=== PATIENT | female | born 2000 | race Caucasian/White ===

== ENCOUNTER 2024-02-29 07:27 | Inpatient (IN) | payer MEDICAID, SELFPAY ==
[2024-02-29] VITALS (68 sets, daily range): BP systolic 108–143; BP diastolic 55–84; PULSE 54–93; RESP 16–18; TEMP 36.1–37.1; O2SAT 80–100; BMI 39.6
[2024-02-29] MEDS: Lactated Ringers 1,000 ML 50 ML IV (08:04)
--- NOTE | 2024-02-29 08:09 | PCM.HP.OB ---
HPI - General General Date of Admission: 02/29/24 HPI Narrative FABIO GAVIN, is a 23 F who presents for induction of labor for GHTN and poor growth. Maternal Data Information MATTEO Calculator Estimated Delivery Date Method Current WG Current Estimate 03/09/24 Manual 38w 5d Final MATTEO: 03/09/24 [facility] Medical History (Updated 02/29/24 @ 08:12 by Melissa Bailey CNM) History of prior with IUGR Pre-eclampsia Gestational HTN Home Medications ?Medication ?Instructions ?Recorded ?Last Taken ?Type aspirin 81 mg tablet,delayed 81 mg PO DAILY 02/29/24 02/28/24 History release (Adult Low Dose Aspirin) vit no.95-ferrous 1 tab PO DAILY 02/29/24 02/28/24 History fumarate 28 mg-folic acid 800 mcg tablet () Allergy/AdvReac Type Severity Reaction Status Date / Time No Known Allergies Allergy Verified 02/29/24 07:45 Social History Smoking Status: Never smoker History Elective abortions Hx Para 1 Spontaneous abortions Hx # Term Pregnancies Ectopic pregnancies Hx # Pregnancies Multiple births # of living children NST FHR Rate Baby A Baseline: 140 Variability:: Moderate Accelerations:: 15 x 15 Decelerations:: None NST Reactive:: Yes FHR Category:: Category I Uterine Activity:: TOCO reading every 2-3 minutes ROS Eyes Eyes: Denies blurry vision, change in vision or spots in vision ENT HEENT: Denies dizziness or headache(s) Cardiovascular Cardiovascular: Denies abdominal pain, chest pain or dyspnea Respiratory/Chest Respiratory/Chest: Denies cough, dyspnea, shortness of breath at rest or shortness of breath with exertion Gastrointestinal Gastrointestinal: Denies abdominal pain, diarrhea or vomiting Genitourinary Genitourinary: Denies change in urinary stream, difficulty urinating or dysuria Musculoskeletal Musculoskeletal: Reports none Integumentary Integumentary: Denies rash Neurologic Neurologic: Denies dizziness, headache(s), memory loss or weakness Psychiatric Psychiatric: Reports none Vital Signs Vital Signs Vital Signs: 02/29/24 07:33 02/29/24 07:33 02/29/24 07:33 Temperature Temperature Source Temporal Pulse Rate 71 Respiratory Rate Blood Pressure 138/76 H BP Systolic 138 BP Diastolic 76 02/29/24 07:33 02/29/24 07:33 Temperature 97.0 F L Temperature Source Pulse Rate Respiratory Rate 16 Blood Pressure BP Systolic BP Diastolic Weight Weight: 252 lb 13.923 oz Body Mass Index (BMI) 39.6 Physical Exam Const alert, oriented x3 and no apparent distress General Appearance: cooperative Orientation / Consciousness: awake Exam Limitations: no limitations HEENT normocephalic Head and Scalp: normal to inspection Eyes General Eye: normal appearance of both eyes Neck full ROM and no lymphadenopathy Lymph Lymphatic: no lymphadenopathy noted Chest inspection of chest normal Resp normal respiratory effort, normal air movement and clear to auscultation bilaterally Effort and Inspection: able to speak in complete sentences and symmetric chest movement Cardio regular rate and regular rhythm GI normal to inspection, nondistended, normoactive bowel sounds Manual OB Exam: presentation cephalic, dilated 4, effaced 80 and station 0 Amniotic Fluid: clear amniotic fluid Back/Spine normal ROM Extremity full ROM and no calf tenderness Skin no rashes or lesions noted General Skin Exam: no breakdown Neuro oriented x3 and CN's II-XII intact bilaterally Psych mental status grossly normal and thought process normal Labs Labs Labs: Antibody Screen Pending Hct 35.1 % (37-47) L Hgb 11.4 g/dL (12.0-15.0) L Syphilis Total Ab Pending GBS Negatvie Assessment & Plan (1) 38 weeks gestation of : (2) Obesity affecting : (3) Poor growth affecting management of mother: (4) Gestational HTN: (5) Encounter for induction of labor: PLAN: Plan Admit to labor and delivery Routine labs GBS negative CE- 2/60/-2 Cage bulb placed and filled with 30 cc N/S Pain medication when indicated Dr. Hewitt notified of admission, assessment and plan and is collaborating physician
[2024-02-29 08:16] LABS: Absolute Lymphocyte Count 2.12 X10^3/uL (0.83-4.51); Absolute Neutrophil Count 6.8 X10^3/uL (2.0-7.7); Basophil# 0.03 X10^3/uL; Basophil% 0.3 % (0-1); Eosinophil# 0.08 X10^3/uL; Eosinophils% 0.8 % (0-5); Hematocrit 35.1 % (37-47); Hemoglobin 11.4 g/dL (12.0-15.0); Lymphocyte # 2.12 X10^3/ul (0.83-4.51); Lymphocyte % 22.4 % (19-41); Mean Corp Hgb Conc 32.5 g/dL (32-36); Mean Corpuscular Hgb 28.3 pg (27.0-32.0); Mean Corpuscular Volume 87.1 fL (81-99); Mean Platelet Vol. 11.1 fl (6.2-12.0); Monocyte# 0.41 X10^3/uL; Monocyte% 4.3 % (0-10); NRBC Flagged by Analyzer 0 % (0-5); Neutrophil % 71.8 % (47-70); Platelet Count 255 K/mm3 (150-450); RBC Distribution Width CV 12.9 % (11.6-14.6); RBC Distribution Width SD 40.8 fl (35.1-43.9); Red Blood Count 4.03 M/mm3 (4.2-5.4); White Blood Count 9.5 K/mm3 (4.4-11.0)
[2024-02-29] MEDS: Oxytocin 15 Units/NS 250ml 15 UNITS/250 ML IV.SOLN 2 UNITS IV (08:16)
[2024-02-29] MEDS: 0.9% Normal Saline Single 100 ML IV.SOLN. INTRA-UTER (08:34)
[2024-02-29 09:14] LABS: Syphilis Antibodies Non-reactive
[2024-02-29] MEDS: Lactated Ringers 1,000 ML 999 ML IV (14:32)
[2024-02-29] MEDS: fentaNYL-bupivacaine (epidural) 100 ML BAG EPIDURAL (15:39)
--- NOTE | 2024-02-29 16:59 | PCM.PN.CNM ---
Subjective Subjective Patient seen at bedside. Just received epidural anesthesia. Starting to feel less pain during contractions. Objective Data Objective Data Vital Signs: Vital Signs Temp Pulse Resp BP Pulse Ox 98.2 F 73 18 136/69 H 100 02/29/24 12:33 02/29/24 16:40 02/29/24 16:40 02/29/24 16:40 02/29/24 16:40 Weight: 252 lb 13.923 oz Body Mass Index (BMI) 39.6 Intake & Output: Intake and Output for Last 24 Hours 02/27/24 02/28/24 02/29/24 23:59 23:59 23:59 Intake Total 36.10 / 36.10 Balance 36.10 / 36.10 Lab / Micro Data 02/29/24 08:04 Labs: Laboratory Results - last 24 hr 02/29/24 08:04: WBC 9.5, RBC 4.03 L, Hgb 11.4 L, Hct 35.1 L, MCV 87.1, MCH 28.3, MCHC 32.5, RDW Std Deviation 40.8, RDW Coeff of Jess 12.9, Plt Count 255, MPV 11.1, Immature Gran % (Auto) 0.400, Neut % (Auto) 71.8 H, Lymph % (Auto) 22.4, [place] % (Auto) 4.3, Eos % (Auto) 0.8, Baso % (Auto) 0.3, Absolute Neuts (auto) 6.8, Absolute Lymphs (auto) 2.12, Nucleated RBC % 0, Syphilis Total Ab Non-reactive, Blood Type O POSITIVE, Antibody Screen NEGATIVE Assessment & Plan (1) Encounter for induction of labor: (2) Poor growth affecting management of mother: (3) Obesity affecting : (4) 38 weeks gestation of : (5) Gestational HTN: PLAN: Plan CE /-2- bulging bag AROM for clear fluid Pitocin 14 mu/min Continue present management of care Anticipate
[2024-02-29] MEDS: Lidocaine 1% (20 ml mdv) 20 ML Vial INFILT (17:45)
--- NOTE | 2024-02-29 17:53 | EX.PCM.OBRPT ---
Assessment & Plan (1) (spontaneous vaginal delivery): (2) Laceration, obstetrical, first degree: (3) Gestational HTN: (4) Obesity affecting : (5) Poor growth affecting management of mother: Maternal Data Information MATTEO Calculator Estimated Delivery Date Method Current WG Current Estimate 03/09/24 Manual 38w 5d Vaginal Delivery Maternal Presentation Maternal Presentation: Medically Indicated Induction Maternal Presentation: for induction of labor for poor growth, obesity, and GHTN. Type of Induction: Pitocin, Cage Bulb and Amniotomy Medical Reason for Induction: Gestational Hypertension and - (poor growth and obesity) Operative Information Date of Procedure: 02/29/24 Pre-Operative Diagnosis: Term gestation, induction of labor Post-Operative Diagnosis: , Live infant female infant Surgery / Procedure Performed: Spontaneous Vaginal Delivery Type of Anesthesia: Epidural and Local with 1% Lidocaine Drain: Cage to straight drain Estimated Blood Loss: 200 Time of Delivery: 17:26 Findings Description of Procedure: Patient quickly progressed to complete dilation. With good maternal effort, head delivered followed by anterior shoulder and remainder of infant body without any force, delay or traction. Vigorous female was delivered atraumatically and placed on maternal abdomen. Pitocin IV started for active management of the third stage of labor. 3 vessel cord clamped and cut after delay and placed immediately skin to skin with patient. Cord blood collected and sent. Placenta delivered spontaneously and intact. A first degree laceration was repaired with 3-0 Vicryl Rapide in usual fashion after local anesthesia administered due to patient feeling pain. Hemostasis obtained. Vaginal sweep performed. Fundus is firm and bleeding hemostatic. Sponge and sharp counts correct. Patient and bonding well at this time. Dr. Hewitt notified of delivery. Routine post orders placed. Presentation: Vertex Amniotic Membrane Rupture Type: Artificial Time of Membrane Rupture: 1611 Amniotic Fluid Description: Clear Placental Delivery Description: Spontaneous Placenta Disposition: [facility] Cord Vessel Description: 3 Vessels Cord Entanglement: None A Gender: Female (1 minute): 8 (5 minute): 9 Delayed Cord Clamping: Yes Post Vaginal Delivery Medications Given After Delivery: IV Pitocin Episiotomy Description: None Laceration: 1st degree Complication Complications: None
[2024-02-29] MEDS: Oxytocin 15 Units/NS 250ml 15 UNITS/250 ML IV.SOLN 83 UNITS IV (18:01)
[2024-02-29] MEDS: Acetaminophen 500 MG Tablet 1000 MG PO (19:58)
[2024-03-01] VITALS (8 sets, daily range): BP systolic 128–134; BP diastolic 64–79; PULSE 61–88; RESP 15–18; TEMP 36.4–36.7; O2SAT 99
--- NOTE | 2024-03-01 07:57 | PCM.DC.SUM ---
Providers Date of Admission: 02/29/24 Primary Care Physician: Avril Primary Care Phys Reason For Visit: VAGINAL DELIVERY Diagnosis Discharge Diagnosis (1) (spontaneous vaginal delivery): Status: Acute Code(s): O80 - Encounter for full-term uncomplicated delivery (2) Laceration, obstetrical, first degree: Status: Acute Code(s): O70.0 - First degree perineal laceration during delivery (3) Gestational HTN: Status: Acute Code(s): O13.9 - Gestational [-induced] hypertension without significant proteinuria, unspecified trimester (4) Obesity affecting : Status: Acute Code(s): O99.210 - Obesity complicating , unspecified trimester (5) Poor growth affecting management of mother: Status: Acute Code(s): O36.5990 - Maternal care for other known or suspected poor growth, unspecified trimester, not applicable or unspecified Plan PPD 1 Blood pressures 120-130/60-70's support Pain controlled Patient may desire discharge home tonight after 24 hours- will reevaluate Medications at Discharge Home Medications vit no.95-ferrous fumarate 28 mg-folic acid 800 mcg tablet () 1 tab PO DAILY 02/29/24 acetaminophen 500 mg tablet 1,000 mg (2 x 500 mg) PO Q6H PRN PRN Pain 1-10 Or Fever #0 tabs 03/01/24 naproxen 500 mg tablet 500 mg PO Q8H PRN PRN Pain Score 1-10 #0 tabs 03/01/24 Hospital Course Operations None Procedures None Summary of Care Provided Minutes Spent on Discharge: 15 Hospital Course: Patient had vaginal delivery. Hospital course was uneventful. Physical Exam Narrative Patient seen at bedside. Denies pain. Ambulating and voiding without difficulty. Lochia decreased. Desires discharge home today. Const alert and oriented x3 General Appearance: Negative for in distress HEENT normocephalic Eyes General Eye: normal appearance of both eyes Neck General: normal visual inspection Chest Chest: symmetrical chest wall rise Resp normal respiratory effort and normal air movement Effort and Inspection: symmetric chest movement; Negative for tachypneic Auscultation: clear to auscultation bilaterally Cardio regular rate and regular rhythm Peripheral Pulses: pulses 2+ throughout GI normal to inspection, nondistended, normoactive bowel sounds Narrative: Ice to perineum OB / External & Speculum: vaginal bleeding and other Lochia decreasing Uterus Palpation: uterus fundus firm (Below U) Extremity normal to inspection, full ROM and normal capillary refill Skin no rashes or lesions noted Neuro oriented x3, CN's II-XII intact bilaterally and gait normal Psych mental status grossly normal, thought process normal and activity/motor behavior normal Weight / BMI Weight Weight: 252 lb 13.923 oz Body Mass Index (BMI) 39.6 ABG / Lab / Microbiology Data 02/29/24 08:04 Laboratory: Laboratory Results - last 24 hr 02/29/24 08:04: WBC 9.5, RBC 4.03 L, Hgb 11.4 L, Hct 35.1 L, MCV 87.1, MCH 28.3, MCHC 32.5, RDW Std Deviation 40.8, RDW Coeff of Jess 12.9, Plt Count 255, MPV 11.1, Immature Gran % (Auto) 0.400, Neut % (Auto) 71.8 H, Lymph % (Auto) 22.4, [place] % (Auto) 4.3, Eos % (Auto) 0.8, Baso % (Auto) 0.3, Absolute Neuts (auto) 6.8, Absolute Lymphs (auto) 2.12, Nucleated RBC % 0, Syphilis Total Ab Non-reactive, Blood Type O POSITIVE, Antibody Screen NEGATIVE D/C Instructions Discharge Diet: No restrictions Discharge Activity: Return to Normal Activity, No Restrictions, May Drive, May Shower and May Take a Tub Bath (Warm water only. No bath salts, soaps, bubbles) May resume sexual activity in: 6-8 weeks Weight Bearing Status: Weight bearing as tolerated Call your doctor if you observe: Fever of 101 or Higher, Inability to urinate, Using more than 1 pad per hour, Shortness of breath, Dizziness, Chest pain, Calf discomfort and Uncontrolled pain Please Follow Up With: [facility] PEREZ When: 2 weeks in office or virtual Meaningful Use Info Meaningful Use Meaningful Use Diagnoses (Choose all that apply): None applicable Ischemic Stroke Statin Dosing Therapy Reference: STATIN DOSE THERAPY REFERENCE: * Patients > 75 years receive moderate or high dose statin therapy. * Patients 75 years or YOUNGER should receive HIGH intensity statin dose unless contraindicated. You will be required to document reason for non-treatment if statin daily dose does not meet guidelines. HIGH DOSE STATIN THERAPY DAILY Atorvastatin > than or = to 40 mg Rosuvastatin > than or = to 20 mg Amlodipine + Atorvastatin > than or = to 2.5/40 mg Ezetimibe + Simvastatin 10/80 mg Simvastatin 80mg Discharge Plan Admission Admit Date/Time: 02/29/24 07:27 Primary Reason for Your Visit: Labor and Delivery Attending Provider: Melissa Bailey Primary Care Provider: Care Physician,No Primary Consulting Providers: Kaitlin Maurer Discharge Orders/Prescriptions Prescriptions: New acetaminophen 500 mg Tablet 1,000 mg PO Q6H PRN PRN (Reason: Pain 1-10 Or Fever) Qty: 0 0RF naproxen 500 mg Tablet 500 mg PO Q8H PRN PRN (Reason: Pain Score 1-10) Qty: 0 0RF Continued PNV cmb#95-ferrous fumarate-FA [] 28 mg iron- 800 mcg tablet 1 tab PO DAILY Discontinued aspirin [Adult Low Dose Aspirin] 81 mg tablet,delayed release (DR/EC) 81 mg PO DAILY Referrals / Follow Up: Care Physician,No Primary [Primary Care Provider] - Disposition Disposition (needs filled in before D/C Order can be placed): Home, Self Care
== END 2024-03-01 18:12 | disposition home or self-care (01) | DRG 560 ==
PROVIDERS: Admitting Provider Advanced Practice Midwife; Referring Provider Advanced Practice Midwife; Visit Provider Advanced Practice Midwife
DX: O13.4 Gestational [pregnancy-induced] hypertension without significant proteinuria, complicating childbirth (principal); Z37.0 Single live birth; O36.5930 Maternal care for other known or suspected poor fetal growth, third trimester, not applicable or unspecified; O99.214 Obesity complicating childbirth; Z79.82 Long term (current) use of aspirin; Z3A.38 38 weeks gestation of pregnancy; O70.0 First degree perineal laceration during delivery
CPT/HCPCS: 59025; 59050; 85025; 86780; 86850; 86900; 86901; 99221; J7120; G0378